=== PATIENT | female | born 1950 | race Caucasian/White ===

== ENCOUNTER → 2021-10-10 | Day surgery (SDC) | payer MEDICARE ==
[2021-10-08 11:50] LABS: BASOPHILS % 0.3 % (0.0-1.0); EOSINOPHILS # (AUTO) 0.2 (0.0-0.4); HEMATOCRIT 44.6 % (34.2-44.1); HEMOGLOBIN 14.6 g/dL (12.0-16.0); LYMPHOCYTES # (AUTO) 2.2 (1.0-3.2); LYMPHOCYTES % 38.2 % (18.0-39.1); MEAN CORPUSCULAR HEMOGLOBIN 29.9 pg (28-32); MEAN CORPUSCULAR HGB CONC 32.7 g/dL (31-35); MEAN CORPUSCULAR VOLUME 91.4 fL (81-99); MONOCYTES # (AUTO) 0.4 (0.2-0.8); MONOCYTES % 6.2 % (4.4-11.3); NEUTROPHILS % 51.1 % (38.7-80.0); PLATELET COUNT 214 x10e3/uL (140-360); RED BLOOD COUNT 4.88 x10e6/uL (3.6-5.1); RED CELL DISTRIBUTION WIDTH 12.5 % (11.7-14.4)
[2021-10-08 12:08] LABS: INR 0.87; PROTHROMBIN TIME 12.6 seconds (11.9-14.5)
[2021-10-08 12:10] LABS: ALBUMIN 3.7 g/dL (3.5-5.0); ALBUMIN/GLOBULIN RATIO 0.9 (0.8-2.0); ANION GAP 19.1 mmol/L (8-16); CALCIUM 10.9 mg/dL (8.4-10.2); CHOL/HDL RATIO 6.9 (3.0-3.6); CREATININE, SERUM 0.81 mg/dL (0.57-1.11); POTASSIUM 5.1 mmol/L (3.5-5.1)
[~2021-10-10] VITALS: Ht 167.6 cm; Wt 84.4 kg
[2021-10-10] VITALS (11 sets, daily range): BP systolic 103–128; BP diastolic 59–84
[~2021-10-10] MED LIST: ACETAMINOPHEN 325 MG TAB PO ONE; ALBUTEROL SULFAT2 MG PO; CLONAZEPAM0.5 MG PO; DICLOFENAC SODI75 MG; FENTANYL CITRATE/PF 100MCG/2 ML INJ ONE; FLONASE ALLERG9.9 ML INH; HEPARIN SOD (PORCINE) 1000 UNIT/ML 30ML ONE; HEPARIN SOD/SOD CHLORIDE 2,000 ML ONE; HYDROCHLOROTHIA25 MG; IOPAMIDOL 370 MG/ML 100 ML INFUS..BTL INJ ONE; LIDOCAINE HCL 1% LOCAL INJ 20 ML VIAL ONE; LIPITOR20 MG PO; LYRICA75 MG PO; MIDAZOLAM HCL 2 MG/2 ML VIAL ONE; MYSOLINE50 MG; NEXIUM40 MG PO; NITROGLYCERIN/D5W 200 MCG/ML 250 ML ONE; ONDANSETRON HCL INJ 2MG/ML 2ML 2 MG/ML VIAL ONE; PLAQUENIL200 MG PO; PROLIA60 MG/1 ML; SINGULAIR10 MG PO; SODIUM CHLORIDE 0.9% 1000ML 1,000 ML ONE; TIZANIDINE HCL4 M1 PO; VERAPAMIL HCL 2.5 MG/ML 2 ML VIAL ONE; VITAMIN D3125 MCG; ZOLOFT100 MG PO
== END | disposition home or self-care (01) ==
LOC: CATH LAB 07:30
PROVIDERS: ATTEND Internal Medicine Cardiovascular Disease
DX: I25.118 Atherosclerotic heart disease of native coronary artery with other forms of angina pectoris (principal); R94.39 Abnormal result of other cardiovascular function study; R00.2 Palpitations; I10 Essential (primary) hypertension; E78.5 Hyperlipidemia, unspecified; Z71.82 Exercise counseling; Z71.3 Dietary counseling and surveillance; Z01.812 Encounter for preprocedural laboratory examination; Z20.822 Contact with and (suspected) exposure to COVID-19; Z79.899 Other long term (current) drug therapy; Z82.49 Family history of ischemic heart disease and other diseases of the circulatory system
CPT/HCPCS: 36415; 76937; 80053; 80061; 85025; 85610; 93458; C1887; J1644; J2001; J2250; J2405; J3010; J7030; Q9967; U0002; 99152